=== PATIENT | female | born 1980 | race Caucasian/White ===

== ENCOUNTER 2021-05-08 18:19 | Emergency (ER) | payer OTHER ==
[~2021-05-08] VITALS: Ht 160 cm; Wt 64.4 kg
[2021-05-08 19:16] LABS: BASOPHILS ABSOLUTE AUTO 0.04 K/mm3 (0.00-0.23); BASOPHILS PERCENT AUTO 1 % (0-2); EOSINOPHILS ABSOLUTE AUTO 0.09 K/mm3 (0.00-0.68); EOSINOPHILS PERCENT AUTO 1 % (0-6); Hematocrit 33.5 % (33.0-51.0); Hemoglobin 9.6 g/dL (11.5-16.0); IMMATURE GRAN ABSOLUTE AUTO 0.02 K/mm3 (0.00-0.10); IMMATURE GRAN PERCENT AUTO 0 % (0-1); LYMPHOCYTES ABSOLUTE AUTO 2.73 K/mm3 (0.84-5.20); LYMPHOCYTES PERCENT AUTO 33 % (21-46); MONOCYTES PERCENT AUTO 7 % (4-13); Mean Corpuscular HGB 21.1 pg (26.0-34.0); Mean Corpuscular HGB Conc 28.7 g/dL (31.5-36.5); Mean Corpuscular Volume 74 fL (80-100); Mean Platelet Volume 9.8 fL (9.1-12.4); NEUTROPHILS ABSOLUTE AUTO 4.69 K/mm3 (1.96-9.15); NEUTROPHILS PERCENT AUTO 58 % (41-73); Platelet Count 265 K/mm3 (150-400); RDW Coefficient Variation 17.8 % (11.7-14.2); RDW Standard Deviation 47.1 fL (35.1-46.3); Red Blood Cell Count 4.56 M/mm3 (3.80-5.20); White Blood Cell Count 8.17 K/mm3 (4.00-11.30)
[2021-05-08 19:33] LABS: Alanine Aminotransfer (ALT/SGP 26 U/L (12-78); Albumin, Blood 3.8 g/dL (3.4-5.0); Albumin/Globulin Ratio 0.9 (0.8-1.8); Alk Phos 57 U/L (50-136); Anion Gap 3 mmol/L (6-16); Aspartate Aminotrans (AST/SGOT 16 U/L (12-37); Bilirubin, Total 0.5 mg/dL (0.1-1.0); Blood Urea Nitrogen 17 mg/dL (8-24); Bun/Creatinine Ratio 24.1 (12.0-20.0); CO2, Blood 30 mmol/L (21-32); Chloride, Blood 106 mmol/L (98-108); Globulin, Blood 4.3 g/dL (2.2-4.0); Glomerular Filtration Rate >60 (60-); Glucose, Blood 79 mg/dL (70-99); Potassium, Blood 3.5 mmol/L (3.5-5.5); Sodium, Blood 139 mmol/L (136-145); Total Protein, Blood 8.1 g/dL (6.4-8.2)
[2021-05-08] MEDS ORDERED: AMOCLA875 PO (20:41)
== END 2021-05-08 20:58 | disposition home or self-care (01) ==
LOC: ER 18:19
PROVIDERS: Physician Assistant
DX: J36 Peritonsillar abscess (principal)
CPT/HCPCS: 42700; 70491; 80053; 85025; 87081; 87430; 99283-25; A9270; Q9967

== ENCOUNTER 2021-05-12 09:54 | Emergency (ER) | payer OTHER ==
[~2021-05-12] VITALS: Ht 160 cm; Wt 64.4 kg
[~2021-05-12 09:54] MED LIST: AMOCLA875 PO
== END 2021-05-12 10:49 | disposition home or self-care (01) ==
LOC: ER 09:54
DX: M32.9 Systemic lupus erythematosus, unspecified (principal); Z86.2 Personal history of diseases of the blood and blood-forming organs and certain disorders involving the immune mechanism
CPT/HCPCS: 93005; 93010; 99281-25

== ENCOUNTER 2021-06-08 00:28 | Day surgery (SDC) | payer OTHER ==
[2021-06-08] MEDS ORDERED: Deltasone 10 mg10 MG PO (15:00)
== END 2021-06-08 16:00 | disposition home or self-care (01) ==
LOC: ATC 00:28
DX: D50.9 Iron deficiency anemia, unspecified (principal); M06.9 Rheumatoid arthritis, unspecified; M32.9 Systemic lupus erythematosus, unspecified; Z79.52 Long term (current) use of systemic steroids; Z88.8 Allergy status to other drugs, medicaments and biological substances; Z87.891 Personal history of nicotine dependence
CPT/HCPCS: J2916

== ENCOUNTER 2021-07-06 01:35 | Day surgery (SDC) | payer OTHER ==
[~2021-07-06 01:35] MED LIST changes: +Deltasone 10 mg10 MG PO
[2021-07-06] MEDS ORDERED: ACTEMRA200 MG/10 IV (14:02)
--- NOTE | 2021-07-06 14:47 | NUR ---
UNABLE TO GIVE [facility] ARE OUT OF THE MEDICATION.
== END 2021-07-06 14:43 | disposition home or self-care (01) ==
LOC: ATC 01:35
DX: M05.79 Rheumatoid arthritis with rheumatoid factor of multiple sites without organ or systems involvement (principal); M32.9 Systemic lupus erythematosus, unspecified; D50.9 Iron deficiency anemia, unspecified; Z79.899 Other long term (current) drug therapy; Z79.52 Long term (current) use of systemic steroids; Z88.8 Allergy status to other drugs, medicaments and biological substances; Z87.891 Personal history of nicotine dependence
CPT/HCPCS: 96365; J2916; J3262

== ENCOUNTER 2023-09-15 16:40 | Emergency (ER) | payer OTHER ==
[~2023-09-15] VITALS: Ht 160 cm; Wt 68.0 kg
[~2023-09-15 16:40] MED LIST changes: +ACTEMRA200 MG/10 IV
[2023-09-15 17:09] VITALS: BP 143/93
[2023-09-15] MEDS ORDERED: PROM25 PO (17:33)
== END 2023-09-15 17:40 | disposition home or self-care (01) ==
LOC: ER 16:40
DX: U07.1 COVID-19 (principal); Z79.52 Long term (current) use of systemic steroids; Z79.899 Other long term (current) drug therapy
CPT/HCPCS: 99283; A9270

== ENCOUNTER 2024-05-23 06:56 | Day surgery (SDC) | payer OTHER ==
[~2024-05-23] VITALS: Ht 160 cm; Wt 87.3 kg
[~2024-05-23 06:56] MED LIST changes: +PROM25 PO
[2024-05-23] MEDS ORDERED: LEFL20 PO (07:29)
[2024-05-23] MEDS ORDERED: APRI1 EACH PO (07:31)
[2024-05-23] MEDS ORDERED: METH40 PO (07:32)
[2024-05-23] MEDS ORDERED: RINVOQ ER15 MG PO (07:32)
[2024-05-23] MEDS ORDERED: Phenylephrine HCl 100 MCG/ML-NS 10MLSYR (1MG/10ML) ONE (07:44)
[2024-05-23] MEDS ORDERED: Dexamethasone Sod Phos 10 MG/ML 1ML VIAL ONE (07:44)
[2024-05-23] MEDS ORDERED: Rocuronium Bromide 10 MG/ML 5ML Injection IV ONE (07:44)
[2024-05-23] MEDS ORDERED: DiphenhydrAMINE HCl 50 MG/ML 1ML Vial ONE (07:44)
[2024-05-23] MEDS ORDERED: propofoL 40 ML IV ONE (07:45)
[2024-05-23] MEDS ORDERED: Midazolam HCl 1MG / ML 2ML Vial ONE (07:45)
[2024-05-23] MEDS ORDERED: HYDROmorphone HCl/Pf 1MG SYR ONE (07:45)
[2024-05-23] MEDS ORDERED: Lactated Ringer's 1,000 ML IV ONE (07:58)
[2024-05-23] MEDS ORDERED: LevoFLOXacin 500MG/D5W 100ML 100 ML IV ONE (08:09)
[2024-05-23] MEDS ORDERED: Lidocaine 1%-Epineph 1:200000 30 ML SDV XX ONE (08:31)
--- NOTE | 2024-05-23 08:36 | NUR ---
05/23/24 0836 Keyonna Quan 2% LIDOCAINE 1:100,00 MIXED 1:1 WITH INJECTABLE NACL TO CREATE LOCAL SOLUTION.
[2024-05-23] MEDS ORDERED: Sugammadex Sodium 200 MG/2ML SDV (100 MG/ML) ONE (08:37)
[2024-05-23] MEDS ORDERED: FentaNYL Citrate 50 MCG/ML 2 ML Injection ONE (09:32)
--- NOTE | 2024-05-23 09:56 | NUR ---
05/23/24 0956 Shobha Stokes ARELLANO CATHETER CLAMPED AND BACK FLUSHED WITH 50CC STERILE H20 THEN PULLED. PT UP TO BATHROOM WITH ASSISTANCE AND PT VOIDED 100CC'S RED TINGED URINE IN HAT. PT MEDICATED WITH IV FENTANYL IN SDU. AT BEDSIDED.
[2024-05-23] MEDS ORDERED: OxyCODONE 5 mg/Acetamin 325 mg TABLET ONE (09:59)
[2024-05-23] MEDS ORDERED: Ibuprofen 400 MG Tab ONE (09:59)
[2024-05-23 10:09] VITALS: BP 141/85
== END 2024-05-23 10:26 | disposition home or self-care (01) ==
LOC: ORSCSDS 06:56
PROVIDERS: Obstetrics & Gynecology
PROC: 0TSD0ZZ Reposition Urethra, Open Approach (ICD-10-PCS; principal; 2024-05-23 08:00)
DX: N39.3 Stress incontinence (female) (male) (principal); E06.3 Autoimmune thyroiditis; M32.9 Systemic lupus erythematosus, unspecified; Z68.34 Body mass index [BMI] 34.0-34.9, adult; Z79.899 Other long term (current) drug therapy
CPT/HCPCS: A9270; C1771; J1100; J1170; J1200; J1956; J2250; J2371; J2704; J3010

== ENCOUNTER → 2025-01-29 | Outpatient (CLI) | payer OTHER ==
[~2025-01-29] MED LIST changes: +APRI1 EACH PO; +LEFL20 PO; +METH40 PO; +RINVOQ ER15 MG PO
[2025-01-29 11:09] LABS: BASOPHILS ABSOLUTE AUTO 0.04 K/mm3 (0.00-0.23); BASOPHILS PERCENT AUTO 1 % (0-2); EOSINOPHILS ABSOLUTE AUTO 0.16 K/mm3 (0.00-0.68); EOSINOPHILS PERCENT AUTO 5 % (0-6); Hematocrit 39.5 % (33.0-51.0); Hemoglobin 12.6 g/dL (11.5-16.0); IMMATURE GRAN ABSOLUTE AUTO 0.01 K/mm3 (0.00-0.10); IMMATURE GRAN PERCENT AUTO 0 % (0-1); LYMPHOCYTES ABSOLUTE AUTO 1.26 K/mm3 (0.84-5.20); LYMPHOCYTES PERCENT AUTO 35 % (21-46); MONOCYTES ABSOLUTE AUTO 0.39 K/mm3 (0.16-1.47); MONOCYTES PERCENT AUTO 11 % (4-13); Mean Corpuscular HGB Conc 31.9 g/dL (31.5-36.5); Mean Corpuscular Volume 81 fL (80-100); Mean Platelet Volume 9.8 fL (9.1-12.4); NEUTROPHILS PERCENT AUTO 48 % (41-73); Platelet Count 261 K/mm3 (150-400); RDW Coefficient Variation 15.1 % (11.7-14.2); RDW Standard Deviation 44.1 fL (35.1-46.3); Red Blood Cell Count 4.85 M/mm3 (3.80-5.20); White Blood Cell Count 3.56 K/mm3 (4.00-11.30)
[2025-01-29 11:21] LABS: Albumin, Blood 3.5 g/dL (3.4-5.0); Albumin/Globulin Ratio 0.7 (0.8-1.8); Bilirubin, Total 0.6 mg/dL (0.1-1.0); Bun/Creatinine Ratio 12.9 (12.0-20.0); Calcium, Blood 9.5 mg/dL (8.5-10.1); Creatinine, Blood 0.62 mg/dL (0.40-1.00); Potassium, Blood 3.7 mmol/L (3.5-5.5); Total Protein, Blood 8.5 g/dL (6.4-8.2)
== END ==
LOC: LAB 11:05 → LAB SHORT 11:05
PROVIDERS: Physician Assistant
DX: R07.9 Chest pain, unspecified (principal)
CPT/HCPCS: 80053; 84484; 85025; 85379